=== PATIENT | female | born 1990 | race Caucasian/White ===

== ENCOUNTER 2021-02-07 17:52 | Outpatient (CLI) | payer BC | END 2021-02-07 18:55 | disposition home or self-care (01) | LOC: GENOP 17:52 | DX: O42.913 Preterm premature rupture of membranes, unspecified as to length of time between rupture and onset of labor, third trimester (principal); Z3A.34 34 weeks gestation of pregnancy | CPT/HCPCS: 81001; 83518; G0463 ==